=== PATIENT | female | born 1975 | race African-American/Black ===

== ENCOUNTER 2023-05-24 10:34 | Emergency (ER) | payer OTHER, SELFPAY ==
[2023-05-24 10:46] VITALS: BP 136/93
[2023-05-24 11:14] LABS: COVID-19 Antigen Negative (Negative)
[2023-05-24 11:19] VITALS: BMI 33.5
[2023-05-24] MEDS: TORADOL 30 MG IV (12:52)
[2023-05-24] MEDS: REGLAN 10 MG IV (12:52)
[2023-05-24] MEDS: BENADRYL 50 MG IV (12:52)
[2023-05-24] MEDS: NSS 1000 IV (12:52)
[2023-05-24 13:04] LABS: % Basophils 0.9 % (0-2); % Eosinophils 1.1 % (0-6); % Immature Granulocytes 0.2 % (0-0.5); % Lymphocytes 32.2 % (20.5-51.1); % Monocytes 6.4 % (1.7-9.3); % Neutrophils 59.2 % (42.2-75.2); Absolute Basophils 0.1 10^3/uL (0-0.2); Absolute Eosinophils 0.1 10^3/uL (0-0.7); Absolute Lymphocytes 2.1 10^3/uL (1.2-3.4); Absolute Monocytes 0.4 10^3/uL (0.1-0.6); Absolute Neutrophils 3.8 10^3/uL (1.4-6.5); Hematocrit 36.6 % (37.0-47.0); Mean Corp Hgb Conc. 35.5 g/dL (33.0-37.0); Mean Corpuscular Hgb 31.5 pg (27.0-31.0); Mean Corpuscular Volume 88.6 fL (81.0-99.0); Mean Platelet Volume 9.4 fL (7.4-10.4); Nucleated Red Blood Cells % 0 %; Platelet Count 357 10^3/uL (130-400); Red Blood Cell Count 4.13 10^6/uL (4.20-5.40); Red Cell Dist. Width 14.3 % (11.5-14.5); White Blood Cell Count 6.4 10^3/uL (4.8-10.8)
[2023-05-24 13:25] LABS: HCG, Serum Qualitative Screen Negative
[2023-05-24 13:27] LABS: Blood Urea Nitrogen 11 mg/dl (7-17); Calcium 10.1 mg/dl (8.4-10.2); Carbon Dioxide 24 mmol/L (22-30); Chloride 99 mmol/L (98-107); Estimated Creatinine Clearance 95 ml/min; Glucose 100 mg/dl (70-99); Sodium 135 mmol/L (135-145); eGFR > 60.00
[2023-05-24 13:52] LABS: Potassium 4.4 mmol/L (3.5-5.1)
--- NOTE | 2023-05-24 14:53 | ED.GENMED ---
History of Present Illness
General
Chief Complaint: Headache
Source: patient and family
Exam Limitations: none
Time Seen by Provider: 05/24/23 12:11
Nursing documentation reviewed up to this point in time: agreed with
Travel History
Have you had any contact with someone who has COVID-19?: No
Do you have any symptoms of coronavirus? Fever > 100 degrees, chills, cough, shortness of breath, sore throat, loss of taste or smell, muscle aches, or headache?: Yes
Symptoms:: headache, chills, sore throat
History of Present Illness
History of Present Illness:
47-year-old female with past medical history of asthma presenting to the emergency department today with concerns of headache photophobia nausea also noted some intermittent chest pain claims that she has had many episodes of headache in the past
never diagnosed with any specific headache disorder. This is slightly worse today. Denies any numbness weakness vomiting she denies this being abrupt in onset denies this being worst of life did not start during exertion
Past History
Past History
ED Past Medical History: Asthma
ED Past Surgical History: Other (Cyst removal from throat 3 years old)
Social History
Tobacco: Non-smoker
Alcohol: None
Drug: None
Living: with family
Employment: Employed
Review of Systems
Review of Systems
Allergies reviewed?: Yes
All Other Systems: ROS reviewed and negative except as documented in HPI and ROS
Phy Exam
Physical Exam
Physical Exam:
GENERAL: Alert , in no apparent distress
EYE: pupils equal and reactive
NECK: Supple, no significant adenopathy.
ENT: o/p clr, mmm.
CARDIAC: Regular rate and rhythm .
LUNGS: Clear breath sounds bilaterally, no acute respiratory distress, no wheezes/rales/rhonchi
ABDOMEN: Soft, without focal tenderness, no r/g, no cvat
NEUROLOGICAL: Alert and oriented, no focal neuro deficits 5 out of 5 upper and lower extremity strength normal sensation were palpated bilaterally normal finger-nose and [id number] no pronator drift
SKIN: Warm and dry, skin intact.
MUSCULOSKELETAL: No edema, well perfused.
PSYCH: Normal and appropriate interaction.
Course
Orders/Labs/Results
Orders:
Orders
05/24/23 10:50
COVID-19 Antigen Urgent
Source: Nasal Swab
05/24/23 12:34
EKG [Electrocardiogram (*1)] Urgent
Reason for Study: Chest Pain
0.9% Sodium Chloride 1000 ml [Nss] 1,000 ml IV BOLUS
Diphenhydramine [Benadryl] 50 mg IV NOW STA
Ketorolac [Toradol] 30 mg IV NOW STA
Metoclopramide [Reglan] 10 mg IV NOW STA
Test Result ONCE
05/24/23 12:35
EKG- Treatment ONCE
05/24/23 12:49
Basic Metabolic Panel Urgent
Complete Blood Count/With Diff Urgent
HCG, Serum Qualitative Screen Urgent
05/24/23 14:53
Dexamethasone Sod Phosphate [Decadron] 10 mg IV NOW STA
Abnormal Lab Results
05/24/23
12:49
RBC 4.13 L 10^6/uL
(4.20-5.40)
Hct 36.6 L %
(37.0-47.0)
MCH 31.5 H pg
(27.0-31.0)
Glucose 100 H mg/dl
(70-99)
05/24/23 12:49
05/24/23 12:49
Vital Signs
Initial and Last Documented VS:
Initial Vital Signs
Temp Pulse Resp BP Pulse Ox
99.3 F 76 16 136/93 99
05/24/23 10:46 05/24/23 10:46 05/24/23 10:46 05/24/23 10:46 05/24/23 10:46
Last Documented Vital Signs
Temp Pulse Resp BP Pulse Ox
99.3 F 76 16 136/93 98
05/24/23 10:46 05/24/23 10:46 05/24/23 10:46 05/24/23 10:46 05/24/23 11:19
MDM/Problems Addressed
MDM/Problems Addressed:
47-year-old female presenting to the emergency department today with concerns of headache described as a diffuse throbbing ache throughout the forehead. Has noticed some sensitivity to light and also nausea no vomiting can have some intermittent
chest pain but none ongoing no shortness of breath no numbness or weakness normal neurologic evaluation no neck pain no fevers no signs of migraine does not seem to be consistent with subarachnoid patient generally very well-appearing no acute
distress with improvement of symptoms after receiving Reglan Toradol and Benadryl. Labs unremarkable EKG normal in relation to the patient's described chest discomfort. Otherwise stable for outpatient management advised for close outpatient
follow-up with neurology and primary care doctor. Return precautions given.
*Critical Care Note
Total Time (30-74mins, 75-104mins- exclusive of procedures): Not Applicable
ED Attending Note
-
Portions of this chart may have been created with voice recognition software.� Occasional wrong word or��sound alike� substitutions may have occurred due to the inherent limitations of voice recognition software.
Discharge Plan
Departure
Patient Disposition: Home (Routine Discharge)
Date of Disposition: 05/24/23
Time of Disposition: 14:53
Patient with high blood pressure during this ER visit?: No
Condition: Good
Covid-19: Not Applicable
Discharge Problem:
Headache
Instructions: Headache, Adult (DC)
Prescriptions:
No Action
No Current Medications
0
Referrals:
Ralph Rowland MD [Active] - Call in 1-3 days for appt
Ginette Herrera MD [Family Provider] -
Activity Restrictions/Additional Instructions:
You came to the emergency department today with concerns of headache. Here you had a reassuring evaluation, normal neurologic examination and labs. Please follow close with neurology for further assessment and return to the emergency department
for any worsening, new or concerning symptoms.
Interventions
Interventions:
*Risk Screen - Suicide Last Done: 05/24/23 11:19
*General Assessment Last Done: 05/24/23 11:19
*Neglect/Abuse Screening Last Done: 05/24/23 11:19
ED- Fall Risk Assessment Last Done: 05/24/23 11:19
*ED COVID-19 Vaccine History Last Done: 05/24/23 11:19
*Nursing Disposition Last Done: 05/24/23 15:09
ED- Neurological Assessment Last Done: 05/24/23 11:19
Discharge Date and Time
Discharge Date/Time: 05/24/23 15:10
[2023-05-24] MEDS: DECADRON 10 MG IV (15:09)
== END 2023-05-24 15:10 | disposition home or self-care (01) ==
LOC: EMR 10:34
PROVIDERS: Physician Assistant; EMERGENCY PHYSICIAN Student in an Organized Health Care Education/Training Program; FAMILY PHYSICIAN Family Medicine
DX: R51.9 Headache, unspecified (principal); J45.909 Unspecified asthma, uncomplicated
CPT/HCPCS: 99283; 96374; 96375; 96361; 80048; 84703; 85025; 87811; 93005